=== PATIENT | male | born 1980 | race African-American/Black ===

== ENCOUNTER 2022-11-19 19:05 | Emergency (ER) | payer MEDICAID ==
[~2022-11-19] VITALS: Ht 180.3 cm; Wt 70.0 kg
[2022-11-19 19:08] VITALS: TEMP 98.3; O2SAT 99
[2022-11-19] MEDS ORDERED: [UNRECOGNIZED DRUG - CODE] TP (20:16)
[2022-11-19 20:30] VITALS: BP 110/86; PULSE 60; RESP 20
[2022-11-19] MEDS ORDERED: KETOROLAC 60MG/2ML VIAL IM ONE (20:30)
== END 2022-11-19 21:09 | disposition home or self-care (01) ==
LOC: ER 19:05
DX: M79.672 Pain in left foot (principal); J45.909 Unspecified asthma, uncomplicated
CPT/HCPCS: 99283; 96372; J1885

== ENCOUNTER 2024-01-29 02:01 | Emergency (ER) | payer MEDICAID ==
[~2024-01-29] VITALS: Ht 180.3 cm; Wt 78.0 kg
[~2024-01-29 02:01] MED LIST: [UNRECOGNIZED DRUG - CODE] TP
[2024-01-29 02:03] VITALS: BP 112/71; PULSE 86; RESP 16; TEMP 98.2; O2SAT 100
[2024-01-29] MEDS: IBUPROFEN 600MG TABLET PO NR (04:00)
[2024-01-29] MEDS: IBUPROFEN 600MG TABLET PO ONE (04:06)
[2024-01-29] MEDS: LIDOCAINE HCL 1% 20ML VIAL INFIL ONE (04:07)
[2024-01-29] MEDS: LIDOCAINE HCL 1% 20ML VIAL INFIL NR (04:07)
[2024-01-29] MEDS ORDERED: IBUP-2029 MT (05:03)
== END 2024-01-29 06:41 | disposition home or self-care (01) ==
LOC: ER 02:01
DX: S63.282A Dislocation of proximal interphalangeal joint of right middle finger, initial encounter (principal); J45.909 Unspecified asthma, uncomplicated; W18.39XA Other fall on same level, initial encounter; Y93.89 Activity, other specified; Y92.89 Other specified places as the place of occurrence of the external cause; Y99.8 Other external cause status
CPT/HCPCS: 73120; 73130; 26770; 99284; J3490; Z7610

== ENCOUNTER 2024-09-02 16:41 | Emergency (ER) | payer MEDICAID ==
[~2024-09-02] VITALS: Ht 180.3 cm; Wt 67.0 kg
[~2024-09-02 16:41] MED LIST changes: +IBUP-2029 MT
[2024-09-02 16:46] VITALS: O2SAT 100
[2024-09-02 16:50] VITALS: BP 102/72; PULSE 97; RESP 16; TEMP 36.8; O2SAT 100
[2024-09-02 19:21] LABS: PROTHROMBIN TIME 10.5 sec (9.6-11.0)
[2024-09-02 19:22] LABS: CARBON DIOXIDE 25 mEq/L (21-32); CHLORIDE 107 mEq/L (98-107); SODIUM 140 mEq/L (136-145)
[2024-09-02 19:23] LABS: CALCIUM 10.1 mg/dL (8.7-10.4)
[2024-09-02 19:28] LABS: ETHANOL BLOOD < 10 mg/dL (<10); GLUCOSE 150 mg/dL (70-105); UREA NITROGEN BLOOD 12 mg/dL (9-23)
[2024-09-02 19:37] LABS: BASOPHILS % 0.4 % (0.0-2.0); EOSINOPHILS % 0.4 % (0.0-5.0); HEMATOCRIT. 43.6 % (42.0-52.0); HEMOGLOBIN. 14.1 g/dL (14.0-18.0); LYMPHOCYTES % 7.1 % (20.0-50.0); MEAN CORPUSCULAR HEMOGLOBIN 29.2 pg (28.0-32.0); MEAN CORPUSCULAR HGB CONC 32.4 g/dL (31.0-37.0); MEAN CORPUSCULAR VOLUME 89.9 fL (80.0-94.0); MEAN PLATELET VOLUME 8.2 fl (7.4-10.4); MONOCYTES % 4.9 % (2.0-8.0); NEUTROPHILS % 87.2 % (40.0-76.0); PLATELET 251 x1000/uL (130-400); RED BLOOD CELL COUNT 4.85 mill/uL (4.7-6.1); RED CELL DISTRIBUTION WIDTH 12.6 % (11.6-14.6); WHITE BLOOD COUNT 13.6 x1000/uL (4.5-11.0)
[2024-09-02 19:51] LABS: TROPONIN I HIGH SENSITIVITY < 4 ng/L (3.0-53)
[2024-09-02 20:35] LABS: CLARITY URINE CLEAR (CLEAR); COLOR URINE YELLOW (YELLOW); GLUCOSE URINE NEGATIVE (NEGATIVE); KETONES URINE NEGATIVE (NEGATIVE); LEUKOCYTE ESTERASE URINE NEGATIVE (NEGATIVE); NITRITE URINE NEGATIVE (NEGATIVE); OCCULT BLOOD URINE NEGATIVE (NEGATIVE); PROTEIN URINE TRACE (NEGATIVE); SPECIFIC GRAVITY URINE 1.022 (1.005-1.030)
[2024-09-02 20:59] LABS: BACTERIA URINE 1+; RBC URINE NONE SEEN /hpf (0-2); SQUAMOUS EPITHELIAL CELL URINE FEW /lpf (RARE/1+); WBC URINE 0-2 /hpf (0-2)
== END 2024-09-02 21:04 | disposition home or self-care (01) ==
LOC: ER 16:41
DX: R55 Syncope and collapse (principal); J45.909 Unspecified asthma, uncomplicated; Z79.899 Other long term (current) drug therapy
CPT/HCPCS: 36415; 71045; 80048; 80320; 81003; 84484; 85025; 93005; 99285; G0480